=== PATIENT | female | born 1995 | race Caucasian/White ===

== ENCOUNTER 2018-02-10 05:32 | Inpatient (IN) | payer OTHER ==
[2018-02-10] MEDS ORDERED: LR 500 ML IV ONE (05:47)
[2018-02-10] MEDS ORDERED: CLINDAMYCIN 900 MG/DEXTROSE 50 ML IV ONE (05:47)
[2018-02-10] MEDS ORDERED: CITRIC ACID/SODIUM CITRATE 30 ML UDCUP PO ONE (05:47)
[2018-02-10] MEDS: LR 1,000 ML IV SCH ×2 (06:26→17:29)
[2018-02-10 06:29] LABS: PLATELET COUNT 177 10^3/uL (150-400)
[2018-02-10] MEDS ORDERED: TERBUTALINE SULFATE 1 MG/ML VIAL ONE (09:10)
[2018-02-10] MEDS ORDERED: MISOPROSTOL 200 MCG TAB ONE (09:10)
[2018-02-10] MEDS ORDERED: LIDOCAINE 1% 300 MG/30 ML SDV ONE (09:10)
[2018-02-10] MEDS ORDERED: OXYTOCIN 10 UNIT/ML VIAL ONE (09:10)
[2018-02-10] MEDS ORDERED: AMMONIA AROMATIC 1 EACH AMP IH ONE (09:10)
--- NOTE | 2018-02-10 09:31 | PDGENHP ---
History and Physical - Chief Complaint Scheduled RLTCS, open hernia repair - History of Present Illness 22 yo at 39w1d by EMILY of 02/16/18 here for scheduled RLTCS and open hernia repair by Dr. Cartagena. H/o PLTCS in 2012 with her daughter Halie due to arrest during post-dates IOL. Baby was [id number] at 41 wks. This overall uncomplicated - anemia treated with iron supps. Umbilical hernia has been present to some degree since her first . labs: B positive Antibody negative RPR NR Rubella IMMUNE Hep B neg HIV neg Trio neg 2012 Parvo and Varicella IMMUNE GC/C neg AFP WNL Glucola 79 GBS NEGATIVE History Information - Allergies/Home Medication List Allergies/Adverse Reactions: amoxicillin [Amoxicillin] Allergy (Intermediate, Verified 02/10/18 06:27) Hives Penicillins Allergy (Verified 02/10/18 06:27) Home Medications: Ferrous Sulfate [Ferrousul] 325 mg PO DAILY 03/24/13 [Last Taken 02/09/18 20:00] Vit27&Calcium/Iron/FA [] 1 tab PO DAILY 03/24/13 [Last Taken 20:00] I have personally reviewed and updated: family history, medical history, social history, surgical history - Past Medical History Additional medical history: None, boderline anemia - Surgical History Additional surgical history: PLTCS 2012 - Family History Positive for: non-pertinent - Social History Smoking Status: Never smoked Alcohol Use: None Review of Systems Review of Systems: ROS: 10pt was reviewed & negative except for what was stated in HPI & below Physical Exam Physical Exam: Alert, NAD, pleasant. Belly soft, NT, gravid, longitudinal lie. EFW 7lbs FHR 150bpm, mod jonel, accels present no decels Temp Pulse Resp BP Pulse Ox 36.8 C 112 H 16 116/78 97 02/10/18 06:11 02/10/18 06:11 02/10/18 06:11 02/10/18 06:11 02/10/18 06:11 Lab Data & Imaging Review 02/10/18 06:15 WBC 8.77 10^3/uL (3.80-9.50) 02/10/18 06:15 RBC 3.55 10^6/uL (4.18-5.33) L 02/10/18 06:15 Hgb 11.2 g/dL (12.6-16.3) L 02/10/18 06:15 Hct 32.2 % (38.0-47.0) L 02/10/18 06:15 MCV 90.7 fL (81.5-99.8) 02/10/18 06:15 MCH 31.5 pg (27.9-34.1) 02/10/18 06:15 MCHC 34.8 g/dL (32.4-36.7) 02/10/18 06:15 RDW 13.3 % (11.5-15.2) 02/10/18 06:15 Plt Count 177 10^3/uL (150-400) 02/10/18 06:15 MPV 8.9 fL (8.7-11.7) 02/10/18 06:15 Neut % (Auto) 63.1 % (39.3-74.2) 02/10/18 06:15 Lymph % (Auto) 26.1 % (15.0-45.0) 02/10/18 06:15 [place] % (Auto) 6.4 % (4.5-13.0) 02/10/18 06:15 Eos % (Auto) 1.5 % (0.6-7.6) 02/10/18 06:15 Baso % (Auto) 0.5 % (0.3-1.7) 02/10/18 06:15 Nucleat RBC Rel Count 0.0 % (0.0-0.2) 02/10/18 06:15 Absolute Neuts (auto) 5.54 10^3/uL (1.70-6.50) 02/10/18 06:15 Absolute Lymphs (auto) 2.29 10^3/uL (1.00-3.00) 02/10/18 06:15 Absolute Monos (auto) 0.56 10^3/uL (0.30-0.80) 02/10/18 06:15 Absolute Eos (auto) 0.13 10^3/uL (0.03-0.40) 02/10/18 06:15 Absolute Basos (auto) 0.04 10^3/uL (0.02-0.10) 02/10/18 06:15 Absolute Nucleated RBC 0.00 10^3/uL (0-0.01) 02/10/18 06:15 Immature Gran % 2.4 % (0.0-1.1) H 02/10/18 06:15 Immature Gran # 0.21 10^3/uL (0.00-0.10) H 02/10/18 06:15 Patient ABO/Rh B POSITIVE 02/10/18 06:15 Antibody Screen NEGATIVE 02/10/18 06:15 Assessment & Plan Assessment: 22 yo G1 at 39w1d here for scheduled RLTCS and open hernia repair. - Routine preop orders. - Allergy to Amoxacillin is non-anaphylactic and hasn't occured since childhood. Will use Ancef. - RBA discussed in clinic and signed consents on chart. HERMELINDO
[2018-02-10] MEDS ORDERED: OXYTOCIN/RINGERS LACTATE 20 UNIT/1,000 ML BAG IV ONE (09:47)
[2018-02-10] MEDS ORDERED: PHENYLEPHRINE HCL 100 MCG/ML SYR ONE ×2 (09:51→11:47)
[2018-02-10] MEDS ORDERED: ePHEDrine SULFATE 25 MG/5 ML SYR ONE (09:51)
[2018-02-10] MEDS ORDERED: BUPIVACAINE/DEXTROSE 7.5MG/ML 2 ML SPINAL AMP SP ONE (09:53)
[2018-02-10] MEDS ORDERED: ceFAZolin 2 GM/DEXTROSE 100 ML IV ONE (10:00)
--- NOTE | 2018-02-10 10:07 | PREANESOB ---
Obstetric Pre-Anesthesia Info - General Info Proposed Procedure: Repeat : 2 Para: 1 EMILY: 02/16/18 Gestational Age: 39 week(s) and 1 day(s) - Info Status: Full Term - Labor Status Pitocin: Planned PIH: No Section History: Repeat Indications for Current Section: Elective/Repeat Labor Epidural: No Anesthesia Allergies/Adverse Reactions: Allergy/AdvReac Type Severity Reaction Status Date / Time amoxicillin [Amoxicillin] Allergy Intermediate Hives Verified 02/10/18 06:27 Penicillins Allergy Verified 02/10/18 06:27 Home Medications: Medication Instructions Recorded Ferrous Sulfate [Ferrousul] 325 mg PO DAILY 03/24/13 Vit27&Calcium/Iron/FA 1 tab PO DAILY 03/24/13 [] Visit Medications: Generic Name Dose Route Start Last Admin Trade Name Freq PRN Reason Stop Dose Admin Acetaminophen 1,000 mg 02/10/18 14:00 Tylenol PO 08/09/18 13:59 Q8HRS ARACELIS Lactated Ringer's 1,000 mls @ 125 mls/hr 02/10/18 06:00 02/10/18 06:26 Lr IV 02/11/18 05:59 1,000 mls CONT ARACELIS Administration Cefazolin Sodium/Dextrose 100 mls @ 200 mls/hr 02/10/18 10:00 Ancef IV 02/10/18 10:29 ONCALL ONE Discontinued Medications Generic Name Dose Route Start Last Admin Trade Name Freq PRN Reason Stop Dose Admin Ammonia (Aromatic Spirit) Confirm 02/10/18 09:10 Ammonia Aromatic Administered 02/10/18 09:11 Dose 1 each IH .STK-MED ONE Bupivacaine HCl/Dextrose Confirm 02/10/18 09:53 Marcaine Spinal Administered 02/10/18 09:54 Dose 2 ml SP .STK-MED ONE Citric Acid/Sodium Citrate 30 ml 02/10/18 05:47 Bicitra PO 02/10/18 05:48 ONCALL ONE Ephedrine Sulfate Confirm 02/10/18 09:51 Ephedrine Sulfate Administered 02/10/18 09:52 Dose 25 mg .ROUTE .STK-MED ONE Clindamycin Phosphate/Dextrose 50 mls @ 100 mls/hr 02/10/18 05:47 Cleocin 900 Mg (Premix) IV 02/10/18 06:16 ONCALL ONE Protocol Lactated Ringer's 500 mls @ 0 mls/hr 02/10/18 05:47 Lr IV 02/10/18 05:48 ONCE ONE As Directed Lidocaine HCl Confirm 02/10/18 09:10 Lidocaine Hcl 1% Administered 02/10/18 09:11 Dose 300 mg .ROUTE .STK-MED ONE Misoprostol Confirm 02/10/18 09:10 Cytotec Administered 02/10/18 09:11 Dose 1,000 mcg .ROUTE .STK-MED ONE Oxytocin Confirm 02/10/18 09:10 Pitocin Administered 02/10/18 09:11 Dose 40 unit .ROUTE .STK-MED ONE Oxytocin/Lactated Ringer's Confirm 02/10/18 09:47 Pitocin 20 Units/Lr (Premix) Administered 02/10/18 09:48 Dose 20 unit IV .STK-MED ONE Phenylephrine HCl Confirm 02/10/18 09:51 Neosynephrine Administered 02/10/18 09:52 Dose 1,000 mcg .ROUTE .STK-MED ONE Terbutaline Sulfate Confirm 02/10/18 09:10 Brethine Administered 02/10/18 09:11 Dose 1 mg .ROUTE .STK-MED ONE - Anesthesia History Response to Local Anesthetics: Normal Anesthesia & Operative History: Prob w/Prior Anesthesia (PONV with narcotics) - Social History Substance Use/Abuse: Denies - Vital Signs Latest Vital Signs (Nursing): Temp Pulse Resp BP Pulse Ox 36.8 C 112 H 16 116/78 97 02/10/18 06:11 02/10/18 06:11 02/10/18 06:11 02/10/18 06:11 02/10/18 06:11 Height/Weight (Nursing): Height 165.1 cm Weight 72.756 kg - Focused Exam Neck exam: FROM Mallampati Score: Class 2 Mouth exam: normal dental/mouth exam Pulmonary: no respiratory distress Cardiovascular: regular rate and rhythym Labs: 02/10/18 06:15 Patient ABO/Rh B POSITIVE 02/10/18 06:15 - Plan Anesthetic Plan: Spinal for primary anesthetic and TAP block for post-op pain control
[2018-02-10] MEDS ORDERED: KETAMINE 500 MG/10 ML VIAL ONE (10:59)
[2018-02-10] MEDS ORDERED: PROPOFOL 200 MG/20 ML VIAL ONE ×2 (11:08→11:43)
[2018-02-10] MEDS ORDERED: fentaNYL 100 MCG/2 ML INJ ONE ×2 (11:10→11:43)
[2018-02-10] MEDS ORDERED: MIDAZOLAM 2 MG/2 ML VIAL ONE (11:15)
[2018-02-10] MEDS ORDERED: ROPIVACAINE HCL 150 MG/30 ML INJ ONE (11:33)
[2018-02-10] MEDS ORDERED: PROMETHAZINE HCL 25 MG/ML INJ IVP PRN (12:18)
[2018-02-10] MEDS ORDERED: SIMETHICONE 80 MG TAB CHEW PO PRN (12:18)
--- NOTE | 2018-02-10 12:27 | SUROPNOTE ---
JOSE Operative Report - Surgery Date of Operation: 02/10/18 Surgeon: Kip Pike Erector Operator: Kiki Esteban RN Anesthesia: Spinal Pre-op Diagnosis: Scheduled Repeat , umbilical hernia Post-op Diagnosis: Same Findings: Minimal scar tissue, normal uterus, normal tubes and ovaries Inf/Abcess present in the surg proc area at time of surgery?: No EBL: 700 Total fluids administered: 1700cc Complications: None Specimen(s): Placenta not sent, cord blood gasses not sent Technique: The patient was taken to the OR where spinal was placed and anesthesia found to be adequate. The patient was then positioned supine with a leftward tilt and a time-out was performed. She was given weight-based antibiotics prior to skin incision. The abdomen was prepped and draped in normal sterile fashion. A Pfannenstiel skin incision was made with the scalpel and carried down to the fascia. Her prior transverse scar was excised prior to that dissection. The fascia was incised in the midline and the incision extended bilaterally sharply with scissors. The fascia was dissected off of the underlying rectus muscles superiorly and inferiorly also sharply using scissors. The rectus were in the midline and the peritoneum identified and entered bluntly without issue. Minimal adhesions encountered as described in findings. Marcia had issues with pain control essentially from the start of the case - anesthesia did need to give her more medication as we progressed and entered the abdomen. The peritoneal incision was extended and the bladder blade was then placed. The vesicouterine junction was identified and a bladder flap created sharply and developed bluntly. A transverse incision was made with the scalpel in the lower uterine segment and extended with cephalad and caudad traction on the incision edges. The head was encountered and easily elevated out of the pelvis and delivered atraumatically, followed by the shoulders and body. The nose and mouth were bulb suctioned. We did wait for 60 seconds before clamping and cutting the cord and then the infant was handed to pediatric staff. Cord blood gases were not sent and the placenta was not sent to pathology. The uterus was then exteriorized and carefully wiped of all debris. The uterus was closed in two layers - the first layer was running with 180 0-vloc and the second a vertical imbricating layer using 0-vicryl. The gutters were cleared of all clots. The uterine incision was re-inspected and found to be hemostatic after placement of one additional figure of eight suture with 3-0 vicryl. Following this the uterus was returned to the abdomen. At this point Dr. Cartagena scrubbed in to perform an open repair of her umbilical hernia. See her operative note for full details. The fascia was elevated and the rectus muscles and subcutaneous tissues were found to be hemostatic. The fascia was closed with a running 0-Vicryl - two sutures starting from the corners and meeting in the midline. The subcutaneous tissues were irrigated and hemostasis obtained. The subcutaneous space was closed with interrupted sutures of 2-0 vicryl. The skin was closed with 4-0 vloc undyed and then covered with Medipore dressing. The patient tolerated the procedure and was taken to recovery in stable condition. Lap, needle, sponge, and instrument count were announced as correct times two. I was present and scrubbed for the entire case.
--- NOTE | 2018-02-10 12:27 | OBDEL ---
Info Type: Repeat Presentation at Delivery: Vertex L&D Analgesia/Anesthesia Type: Spinal GBS+: No Intrapartum Medications: Generic Name Dose Route Start Last Admin Trade Name Freq PRN Reason Stop Dose Admin Lactated Ringer's 1,000 mls @ 125 mls/hr 02/10/18 06:00 02/10/18 06:26 Lr IV 02/11/18 05:59 1,000 mls CONT ARACELIS Administration Discontinued Medications Generic Name Dose Route Start Last Admin Trade Name Freq PRN Reason Stop Dose Admin Cefazolin Sodium/Dextrose 100 mls @ 200 mls/hr 02/10/18 10:00 02/10/18 10:18 Ancef IV 02/10/18 10:29 100 mls ONCALL ONE Administration Operative Report - Delivery Pre-op Diagnoses: Scheduled RCS, umbilical hernia Post-op Diagnoses: Same History of Prior Section: Yes Number of Prior Sections: 1 Nulliparous Prior to Delivery: No Indications for Prior Section: Arrest of Dilation Indications for Current Section: Elective/Repeat Procedure: Scheduled Surgeon: Kip Pike Emergency Room Physician: Kiki Esteban Anesthesiologist: Cj aSnz Complications: None Findings: Minimal scar tissue, normal uterus, tubes and ovaries. EBL: 700 Data EMILY: 02/16/18 Gestational Age: 39 week(s) and 1 day(s) Moore Delivery Date: 02/10/18 Delivery Time: 11:05 Sex of : Male Weight (gm): 3566 g Score (1 Min): 8 Score (5 Min): 9 ICD10 Worksheet Patient Problems: Problems Problem Status Onset Previous section Acute S/P section Acute
--- NOTE | 2018-02-10 12:27 | GOP ---
DATE OF OPERATION: 02/10/2018 SURGEON: Angelita Cartagena MD COOK BARBECUE: Dr. Pike ANESTHESIA: Spinal. PREOPERATIVE DIAGNOSIS: Umbilical hernia. POSTOPERATIVE DIAGNOSIS: Umbilical hernia. PROCEDURE PERFORMED: Umbilical hernia repair. FINDINGS: small defect SPECIMENS: None. ESTIMATED BLOOD LOSS: None for my portion of the procedure. INDICATIONS: The patient is a 22-year-old with her second developed an umbilical hernia. She had a scheduled today and the decision was made to repair umbilical hernia at time of . DESCRIPTION OF PROCEDURE: The patient was already in the operating room and her baby had been delivered. After the uterus was closed, I then placed pressure on the umbilicus and was able to identify the defect. I grasped the defect with an Allis clamp. I placed 0 PDS and ran a suture to close the small defect. Dr. Pike was then able to complete his portion of the procedure. /[id number]/MODL MTDD
[2018-02-10] MEDS: KETOROLAC 30 MG/1 ML SDV IVP SCH ×2 (13:35→19:47)
[2018-02-10] MEDS ORDERED: MEPERIDINE 25 MG/0.5 ML AMP IVP PRN (13:44)
[2018-02-10] MEDS ORDERED: fentaNYL 100 MCG/2 ML INJ IVP PRN (13:44)
[2018-02-10] MEDS ORDERED: HYDROCODONE/APAP 5/325 TAB PO PRN (13:44)
[2018-02-10] MEDS ORDERED: OXYCODONE/APAP 5/325 TAB PO PRN (13:44)
[2018-02-10] MEDS ORDERED: NALOXONE HCL 0.4 MG/ML INJ IVP PRN (13:44)
[2018-02-10] MEDS ORDERED: METOCLOPRAMIDE 10 MG/2 ML VIAL IVP PRN (13:44)
[2018-02-10] MEDS ORDERED: PHENYLEPHRINE HCL 100 MCG/ML SYR IVP PRN (13:44)
[2018-02-10] MEDS ORDERED: HYDROmorphONE/DILAUDID 1 MG/ML INJ IVP PRN (13:44)
[2018-02-10] MEDS ORDERED: ONDANSETRON 4 MG/2 ML VIAL IVP PRN (13:44)
--- NOTE | 2018-02-10 13:44 | POSTANESTH ---
Post Anesthetic Evaluation Cardiovascular Status: Normal, Stable Respiratory Status: Normal, Stable Level of Consciousness/Mental Status: Can Participate in Eval Pain Control: Adequate, Prn Tx Ordered Nausea/Vomiting Control: Adequate, Prn Tx Ordered Complications Possibly Related to Anesthesia: None Noted
[2018-02-10] MEDS ORDERED: ACETAMINOPHEN 500 MG TAB PO SCH (14:00)
[2018-02-10] MEDS: ACETAMINOPHEN 325 MG TAB PO SCH (14:40)
[2018-02-10] MEDS: traMADol 50 MG TAB PO PRN ×2 (14:47→19:48)
[2018-02-11] MEDS: LR 1,000 ML IV SCH (01:05)
[2018-02-11] MEDS: KETOROLAC 30 MG/1 ML SDV IVP SCH ×2 (01:41→08:09)
[2018-02-11] MEDS: traMADol 50 MG TAB PO PRN ×3 (01:41→13:48)
[2018-02-11] MEDS: ACETAMINOPHEN 325 MG TAB PO SCH ×4 (02:22→20:02)
[2018-02-11] MEDS: DOCUSATE SODIUM 100 MG CAP PO PRN ×2 (08:12→20:02)
--- NOTE | 2018-02-11 13:30 | OBPP ---
Progress Note Assessment/Plan: Assessment: 22 yo [id number] POD #1 s/p R-C/S - doing well. Urinary catheter just removed. Anemia. Plan: Encourage ambulation, continue routine post op cares. Start Iron. Bernie Calderon MD, FACOG [facility] 02/11/18 14:55 Subjective/ Course: Doing well, resting comfortably. [place] a bit loopy after Tramadol this morning. going well. Mod lochia. Has not voided on her own again. 02/11/18 14:58 Objective: 02/11/18 05:35 Patient ABO/Rh B POSITIVE 02/10/18 06:15 Temp Pulse Resp BP Pulse Ox 36.6 C 70 16 87/53 L 95 02/11/18 10:45 02/11/18 10:45 02/11/18 10:45 02/11/18 10:45 02/11/18 10:45 gen - pleasant, BAILEY CV - RRR chest - CTAB abd - fundus firm at u-2, + BS inc - C/D/I ext - trace edema, no calf tenderness Uterine Position/Fundal Height: Umbilicus -2 Uterine Tone: Firm
[2018-02-11] MEDS: IBUPROFEN 600 MG TAB PO SCH ×2 (13:50→20:02)
[2018-02-11] MEDS ORDERED: oxyCODONE IR 5 MG TAB PO PRN (14:23)
--- NOTE | 2018-02-11 14:39 | PDPAINCON ---
Pain Management Consultation - Subjective Pain is: low, well controlled Side effects include: No drowsy, No itchiness, No nausea, No nausea/vomiting Activity: able to ambulate - Objective Technique: single shot nerve block (Spinal/TAPS) Catheter site: clean, dry, intact, no erythema/edema/exudate Sensory and motor exam: block has resolved, no apparent ill effects Vital signs: stable - Assessment/Plan Assessment/Plan: pain well-controlled, continue current mgmt Additional comments: Failed spinal, but rates pain control with ketamine as good during suregery. TAP blocks L>>R pain control.
[2018-02-11] MEDS: FERROUS SULFATE 140 MG TAB.ER PO SCH (20:02)
[2018-02-12] MEDS: IBUPROFEN 600 MG TAB PO SCH ×4 (02:08→21:03)
[2018-02-12] MEDS: ACETAMINOPHEN 325 MG TAB PO SCH ×5 (02:08→21:03)
[2018-02-12] MEDS: FERROUS SULFATE 140 MG TAB.ER PO SCH (09:11)
[2018-02-12] MEDS: DOCUSATE SODIUM 100 MG CAP PO PRN ×2 (09:18→21:03)
--- NOTE | 2018-02-12 09:39 | OBPP ---
Progress Note Assessment/Plan: Assessment: 1) s/p RCS POD #2 - pt is stable 2) Anemia - pt is asymptomatic Plan: Continue routine post-op care Encourage ambulation Cont iron and bowel protocol Plan for d/c home in am 118 02/12/18 09:36 Subjective/ Course: Doing well, resting comfortably. [place] a bit loopy after Tramadol this morning. going well. Mod lochia. Has not voided on her own again. 02/11/18 14:58 02/12/18 09:37 Pt seen and examined. Pain is much better controlled today. Pt doing well with no complaints. Pt is OOB, jacquie regular diet, voiding without difficulty and passing flatus. No BM yet. Mod lochia. Denies any f/c/n/v/CP or SOB. BF is going well so far. Will plan for d/c home tomorrow. Objective: 02/11/18 05:35 Patient ABO/Rh B POSITIVE 02/10/18 06:15 Temp Pulse Resp BP Pulse Ox 36.6 C 66 16 96/60 L 95 02/11/18 20:00 02/11/18 20:00 02/11/18 20:00 02/11/18 20:00 02/11/18 20:00 Uterine Position/Fundal Height: Umbilicus -2 Uterine Tone: Firm Physical Exam - Physical Exam General Appearance: WD/WN, alert, no apparent distress Respiratory: lungs clear, normal breath sounds Cardiac/Chest: regular rate, rhythm Abdomen: normal bowel sounds, non-tender, soft, flatus (+), incision (C/D/I, well approximated with suture) Extremities: non-tender, normal inspection Skin: normal color, warm/dry Neuro/Psych: alert, normal mood/affect, oriented x 3
[2018-02-13] MEDS: ACETAMINOPHEN 325 MG TAB PO SCH ×2 (03:10→12:43)
[2018-02-13] MEDS: IBUPROFEN 600 MG TAB PO SCH ×2 (03:10→08:58)
[2018-02-13] MEDS: FERROUS SULFATE 140 MG TAB.ER PO SCH (08:58)
[2018-02-13] MEDS: DOCUSATE SODIUM 100 MG CAP PO PRN (08:58)
[2018-02-13 10:33] VITALS: BP 100/61
--- NOTE | 2018-02-13 10:48 | OBPP ---
Progress Note Assessment/Plan: Assessment: POD 3 s/p RCS with umb hernia repair. anemic Plan: d/c home, cont iron BID and oxy prn with ibu/tyl 02/13/18 10:44 Subjective/ Course: Doing well, resting comfortably. [place] a bit loopy after Tramadol this morning. going well. Mod lochia. Has not voided on her own again. 02/11/18 14:58 02/12/18 09:37 Pt seen and examined. Pain is much better controlled today. Pt doing well with no complaints. Pt is OOB, jacquie regular diet, voiding without difficulty and passing flatus. No BM yet. Mod lochia. Denies any f/c/n/v/CP or SOB. BF is going well so far. Will plan for d/c home tomorrow. 02/13/18 10:45 Pt doing fine. jacquie pain well with ibu/tyl and used oxy once yesterday. urinating fine. bld is very light. amb well. baby is latching well. disc pain needs and rec small script of oxy, pt agrees to 10# Objective: 02/11/18 05:35 Patient ABO/Rh B POSITIVE 02/10/18 06:15 Temp Pulse Resp BP Pulse Ox 36.7 C 64 16 100/61 94 02/13/18 10:31 02/13/18 10:31 02/13/18 10:31 02/13/18 10:31 02/13/18 10:31 Uterine Position/Fundal Height: Umbilicus -2 Uterine Tone: Firm Physical Exam - Physical Exam Abdomen: non-tender (approp post op tenderness), soft, incision (CDI) Extremities: non-tender, pedal edema (minimal) Skin: normal color, warm/dry Neuro/Psych: alert, normal mood/affect
--- NOTE | 2018-02-13 10:51 | OBGCSDC ---
General Delivery Information - General Info : 2 Para: 2 Abortions: 0 Type: Repeat L&D Analgesia/Anesthesia Type: Spinal Admission Date: 02/10/18 Labs: Patient ABO/Rh B POSITIVE 02/10/18 06:15 Hct 28.4 % (38.0-47.0) L 02/11/18 05:35 - Hospital Course : Doing well, resting comfortably. [place] a bit loopy after Tramadol this morning. going well. Mod lochia. Has not voided on her own again. 02/11/18 14:58 02/12/18 09:37 Pt seen and examined. Pain is much better controlled today. Pt doing well with no complaints. Pt is OOB, jacquie regular diet, voiding without difficulty and passing flatus. No BM yet. Mod lochia. Denies any f/c/n/v/CP or SOB. BF is going well so far. Will plan for d/c home tomorrow. 02/13/18 10:45 Pt doing fine. jacquie pain well with ibu/tyl and used oxy once yesterday. urinating fine. bld is very light. amb well. baby is latching well. disc pain needs and rec small script of oxy, pt agrees to 10# - Delivery Providers Surgeon: Kip Pike Horticultural Manager: Kiki Esteban Anesthesiologist: Cj Sanz - Delivery Number of Prior Sections: 1 Indications for Current Section: Elective/Repeat Surgical Procedures: Scheduled Intra-op Complications: None EBL: 700 Data EMILY: 02/16/18 Gestational Age: 39 week(s) and 4 day(s) Moore Delivery Date: 02/10/18 Delivery Time: 11:05 Sex of Infant: Male [place] Weight (gm): 3566 g Score (1 Min): 8 Score (5 Min): 9 Discharge Information - Discharge Information Prescriptions: oxyCODONE IR [Oxycodone Ir (*)] 5 - 10 mg PO Q4HRS PRN #10 tab PRN Reason: Pain, Severe Able To Take Po Condition: Good Instruction/Follow Up: See Instruction Sheet, Two Weeks (with JM), Four Weeks ( with therapist), Six Weeks (with HERMELINDO)
== END 2018-02-13 13:47 | disposition home or self-care (01) | DRG 788 ==
LOC: FLD 05:32 → FOB 14:04
PROVIDERS: ADMIT Obstetrics & Gynecology; ATTEND Obstetrics & Gynecology
PROC: 10D00Z1 Extraction of Products of Conception, Low, Open Approach (ICD-10-PCS; principal; 2018-02-10)
PROC: 0WQF0ZZ Repair Abdominal Wall, Open Approach (ICD-10-PCS; principal; 2018-02-10)
DX: O34.211 Maternal care for low transverse scar from previous cesarean delivery (principal); K42.9 Umbilical hernia without obstruction or gangrene; O99.02 Anemia complicating childbirth; Z3A.39 39 weeks gestation of pregnancy; Z37.0 Single live birth
CPT/HCPCS: J0690; J1885; J2250; J2370; J2590; J2704; J2795; J3010; J3105